=== PATIENT | male | born 1990 | race Caucasian/White ===

== ENCOUNTER 2018-08-30 19:28 | Emergency (ER) | payer OTHER ==
[~2018-08-30] VITALS: Ht 182.9 cm; Wt 167.8 kg
[2018-08-30] MEDS ORDERED: AMOXICILLIN 50500 MG PO (19:37)
[2018-08-30] MEDS ORDERED: PROAIR HFA8.5 GM INH (19:41)
[2018-08-30 19:45] VITALS: BP 154/79
== END 2018-08-30 19:46 | disposition home or self-care (01) ==
LOC: M.ERS 19:28
DX: J02.9 Acute pharyngitis, unspecified (principal); Z76.0 Encounter for issue of repeat prescription